=== PATIENT | male | born 1985 | race American Indian/Alaskan Native ===

== ENCOUNTER 2016-09-05 15:42 | Emergency (ER) | payer OTHER ==
[2016-09-05 16:15] VITALS: BP 122/89
--- NOTE | 2016-09-05 17:41 | Emergency Department Report ---
ED ENT HPI - General Chief complaint: Sore Throat Stated complaint: THROAT PAIN/RT PAIN Time Seen by Provider: 09/05/16 17:34 Source: patient, RN notes reviewed Mode of arrival: Ambulatory Limitations: No Limitations - History of Present Illness Initial comments: PT c/o sore throat x 1.5 weeks. PT states that he is also having R ear pain. PT states his pain is a 10/10 and he has not eaten solid food x 2 days. PT states today he looked at his throat and he saw something. PT denies taking OTC medication for his symptoms. MD complaint: sore throat -: Gradual, week(s) Location: R ear, throat Severity scale (0 -10): 10 Quality: sharp, other (throbbing ) Consistency: constant Worsens with: swallowing, eating Associated Symptoms: pain with swallowing, sore throat. denies: fever, cough, toothache, rhinorrhea - Related Data Previous Rx's Medication Instructions Recorded Last Taken Type Acetaminophen/Codeine [Tylenol #3] 1 tab PO Q6H PRN #8 tab 09/05/16 Unknown Rx Allergies Allergy/AdvReac Type Severity Reaction Status Date / Time No Known Allergies Allergy Unverified 05/15/15 12:02 ED Dental HPI - General Chief complaint: Sore Throat Stated complaint: THROAT PAIN/RT PAIN Time Seen by Provider: 09/05/16 17:34 Source: patient Mode of arrival: Ambulatory Limitations: No Limitations - Related Data Previous Rx's Medication Instructions Recorded Last Taken Type Acetaminophen/Codeine [Tylenol #3] 1 tab PO Q6H PRN #8 tab 09/05/16 Unknown Rx Allergies Allergy/AdvReac Type Severity Reaction Status Date / Time No Known Allergies Allergy Unverified 05/15/15 12:02 ED Review of Systems ROS: Stated complaint: THROAT PAIN/RT PAIN Other details as noted in HPI Comment: All other systems reviewed and negative Constitutional: denies: fever ENT: as per HPI, throat pain Respiratory: denies: cough Gastrointestinal: denies: nausea, vomiting ED Past Medical Hx - Past Medical History Previous Medical History?: Yes Hx Hypertension: No Hx Diabetes: No Additional medical history: Rhabdomylosis - Surgical History Past Surgical History?: No - Social History Smoking Status: Current Every Day Smoker Substance Use Type: Alcohol, Marijuana - Medications Home Medications: Home Medications Medication Instructions Recorded Confirmed Last Taken Type Acetaminophen/Codeine [Tylenol #3] 1 tab PO Q6H PRN #8 tab 09/05/16 Unknown Rx ED Physical Exam - General Limitations: No Limitations General appearance: alert, in no apparent distress - Head Head exam: Present: atraumatic, normocephalic - Eye Eye exam: Present: normal appearance. Absent: conjunctival injection - ENT ENT exam: Present: mucous membranes moist, TM's normal bilaterally, normal external ear exam - Expanded ENT Exam Expanded Throat exam: Positive: tonsillar erythema, tonsillomegaly, tonsillar exudate - Neck Neck exam: Present: normal inspection, full ROM, lymphadenopathy - Respiratory Respiratory exam: Present: normal lung sounds bilaterally. Absent: respiratory distress, chest wall tenderness - Cardiovascular Cardiovascular Exam: Present: regular rate, normal rhythm - Rectal Rectal exam: Present: deferred - Extremities Exam Extremities exam: Present: normal inspection, full ROM - Back Exam Back exam: Present: normal inspection, full ROM. Absent: tenderness - Neurological Exam Neurological exam: Present: alert, oriented X3 - Psychiatric Psychiatric exam: Present: normal affect, normal mood - Skin Skin exam: Present: warm, dry ED Course Vital Signs 09/05/16 16:12 Temperature 98.2 F Pulse Rate 61 Respiratory 16 Rate Blood Pressure 122/89 O2 Sat by Pulse 100 Oximetry - Reevaluation(s) Reevaluation #1: 09/05/16 17:41 PT aware of dx and plan of care. - Pulse Oximetry Interpretation Digit-Finger Initial Pulse Oximetry Readin Actions Taken: none ED Medical Decision Making - Differential Diagnosis om, strep pharyngitis Critical care attestation.: If time is entered above; I have spent that time in minutes in the direct care of this critically ill patient, excluding procedure time. ED Disposition Clinical Impression: Exudative pharyngitis, Otalgia, right ear Disposition: DISCHARGED TO HOME OR SELFCARE Is pt being admited?: No Does the pt Need Aspirin: No Condition: Stable Instructions: Strep Throat (ED), Tonsillitis (ED) Referrals: PRIMARY CARE,MD [Primary Care Provider] - 3-5 Days Forms: Work/School Release Form(ED) Time of Disposition: 17:44 (pending meds )
[2016-09-05] MEDS: MOTRIN PO ONE (17:54)
[2016-09-05] MEDS: BICILLIN L-A IM ONE (17:54)
== END 2016-09-05 18:23 | disposition home or self-care (01) ==
LOC: ED 15:42
DX: J02.9 Acute pharyngitis, unspecified (principal); H92.01 Otalgia, right ear; F12.10 Cannabis abuse, uncomplicated; F17.200 Nicotine dependence, unspecified, uncomplicated
CPT/HCPCS: 96372; 99282; J0561

== ENCOUNTER 2017-03-12 05:43 | Emergency (ER) | payer SELFPAY ==
[2017-03-12] MEDS ORDERED: DUONEB *Not for PRN Use IH ONE (08:11)
[2017-03-12] MEDS ORDERED: TESSALON PERLES PO ONE (08:12)
[2017-03-12] MEDS ORDERED: MOTRIN PO ONE (08:12)
--- NOTE | 2017-03-12 08:29 | XRay Report ---
ROUTINE CHEST, TWO VIEWS: HISTORY: Cough, shortness of breath. The trachea, heart, mediastinal contour, lung doll and bony thorax are unremarkable. IMPRESSION: Unremarkable chest x-ray. No change since 05/15/15.
--- NOTE | 2017-03-12 08:32 | Emergency Department Report ---
ED General Adult HPI - General Chief complaint: Upper Respiratory Infection Stated complaint: COUGH Time Seen by Provider: 03/12/17 08:07 Source: patient Mode of arrival: Ambulatory Limitations: No Limitations - History of Present Illness Initial comments: PT c/o cough x 2-3 days. Gradually worsening. PT states he has a hx of bronchitis. PT states he was having productive cough but now he is having dry cough. PT does smoke, last was 1 week ago. [place] and he [place] not know what he was exposed to. PT states he can not work coughing like this. PT also c/o sinus congestion. Complaint: uri -: Gradual, days(s) Location: head, chest Severity scale (0 -10): 8 Quality: aching Consistency: constant Improves with: none (no relief with cough drops ) Worsens with: other (gradually ) Associated Symptoms: cough, fever/chills, headaches, malaise, weakness ( generalized ). denies: rash Treatments Prior to Arrival: none - Related Data Previous Rx's Medication Instructions Recorded Last Taken Type Albuterol Sulfate [Ventolin HFA] 2 puff IH Q4H PRN #1 hfa.aer.ad 03/12/17 Unknown Rx Benzonatate [Tessalon Perles] 100 mg PO Q8HR PRN #12 capsule 03/12/17 Unknown Rx Ibuprofen [Motrin] 600 mg PO Q8H PRN #15 tablet 03/12/17 Unknown Rx guaiFENesin DM [Robitussin Dm] 10 ml PO Q6HR PRN #1 bottle 03/12/17 Unknown Rx Allergies Allergy/AdvReac Type Severity Reaction Status Date / Time No Known Allergies Allergy Unverified 05/15/15 12:02 ED Review of Systems ROS: Stated complaint: COUGH Other details as noted in HPI Comment: All other systems reviewed and negative Constitutional: chills, malaise, weakness. denies: fever ENT: throat pain (hurts throat to cough ), congestion. denies: ear pain Respiratory: cough. denies: stridor Cardiovascular: denies: chest pain Gastrointestinal: denies: abdominal pain, nausea, vomiting Neurological: headache ED Past Medical Hx - Past Medical History Previous Medical History?: Yes Hx Hypertension: No Hx Diabetes: No Additional medical history: Rhabdomylosis - Surgical History Past Surgical History?: No - Social History Smoking Status: Current Every Day Smoker Substance Use Type: Alcohol, Marijuana - Medications Home Medications: Home Medications Medication Instructions Recorded Confirmed Last Taken Type Albuterol Sulfate [Ventolin HFA] 2 puff IH Q4H PRN #1 hfa.aer.ad 03/12/17 Unknown Rx Benzonatate [Tessalon Perles] 100 mg PO Q8HR PRN #12 capsule 03/12/17 Unknown Rx Ibuprofen [Motrin] 600 mg PO Q8H PRN #15 tablet 03/12/17 Unknown Rx guaiFENesin DM [Robitussin Dm] 10 ml PO Q6HR PRN #1 bottle 03/12/17 Unknown Rx ED Physical Exam - General Limitations: No Limitations General appearance: alert, in no apparent distress - Head Head exam: Present: atraumatic, normocephalic, normal inspection, other ( maxially sinus tenderness ) - Eye Eye exam: Present: normal appearance, PERRL, EOMI. Absent: conjunctival injection, nystagmus Pupils: Present: normal accommodation - ENT ENT exam: Present: normal exam, mucous membranes moist, TM's normal bilaterally , normal external ear exam - Neck Neck exam: Present: normal inspection, full ROM. Absent: tenderness, meningismus, lymphadenopathy, thyromegaly - Respiratory Respiratory exam: Present: normal lung sounds bilaterally, respiratory distress , other (constant cough during exam ). Absent: wheezes, rales, rhonchi, stridor - Cardiovascular Cardiovascular Exam: Present: regular rate, normal rhythm, normal heart sounds - GI/Abdominal GI/Abdominal exam: Present: soft. Absent: tenderness - Extremities Exam Extremities exam: Present: normal inspection, full ROM - Back Exam Back exam: Present: normal inspection, full ROM. Absent: tenderness, CVA tenderness (R), CVA tenderness (L), muscle spasm, paraspinal tenderness, vertebral tenderness - Neurological Exam Neurological exam: Present: alert, oriented X3, CN II-XII intact, normal gait - Expanded Neurological Exam Expanded Patient oriented to: Present: person, place, time Speech: Present: fluid speech Best Eye Response ([place]): (4) open spontaneously Best Motor Response ([place]): (6) obeys commands Best Verbal Response ([place]): (5) oriented [place] Total: 15 ED Course Vital Signs 03/12/17 05:47 Temperature 98 F Pulse Rate 72 Respiratory 18 Rate Blood Pressure 130/98 O2 Sat by Pulse 100 Oximetry - Reevaluation(s) Reevaluation #1: 03/12/17 09:07 PT aware of XR results. PT states neb helped decrease cough. PT aware of dx and plan of care. - Pulse Oximetry Interpretation Digit-Finger Initial Pulse Oximetry Readin Actions Taken: none ED Medical Decision Making - Radiology Data Radiology results: report reviewed - Differential Diagnosis viral uri, bronchitis, pna Critical Care Time: No Critical care attestation.: If time is entered above; I have spent that time in minutes in the direct care of this critically ill patient, excluding procedure time. ED Disposition Clinical Impression: Viral URI with cough Disposition: TO HOME OR SELFCARE Is pt being admited?: No Does the pt Need Aspirin: No Condition: Stable Instructions: Upper Respiratory Infection (ED), Acute Cough (ED) Additional Instructions: Recheck BP at follow up Follow up with PCP in 3-5 days rest, increase fluids Return to the ED if worsening or concerns Prescriptions: Albuterol Sulfate [Ventolin HFA] 2 puff IH Q4H PRN #1 hfa.aer.ad PRN Reason: Shortness Of Breath Benzonatate [Tessalon Perles] 100 mg PO Q8HR PRN #12 capsule PRN Reason: Cough guaiFENesin DM [Robitussin Dm] 10 ml PO Q6HR PRN #1 bottle PRN Reason: Cough Ibuprofen [Motrin] 600 mg PO Q8H PRN #15 tablet PRN Reason: Pain Referrals: PRIMARY MD PATRICK [Primary Care Provider] - 3-5 Days MEREDITH STAPLES MD [Staff Physician] - 3-5 Days Forms: Work/School Release Form(ED) Time of Disposition: 09:10
[2017-03-12 09:38] VITALS: BP 123/84
== END 2017-03-12 09:38 | disposition home or self-care (01) ==
LOC: ED 05:43
DX: J06.9 Acute upper respiratory infection, unspecified (principal); F17.210 Nicotine dependence, cigarettes, uncomplicated; F12.10 Cannabis abuse, uncomplicated
CPT/HCPCS: 71020; 94640; 99283

== ENCOUNTER 2017-07-10 13:39 | Emergency (ER) | payer SELFPAY ==
--- NOTE | 2017-07-10 15:39 | XRay Report ---
LEFT SHOULDER: Trauma, pain. Routine views demonstrate normal bony and soft tissue structures with normal joint alignment of the shoulder. IMPRESSION: Normal study.
[2017-07-10] MEDS ORDERED: TYLENOL ONE (20:22)
[2017-07-10 20:24] VITALS: BP 135/100
[2017-07-10] MEDS ORDERED: TYLENOL PO ONE (20:25)
[2017-07-10] MEDS ORDERED: NORCO 5/325 PO ONE (22:27)
[2017-07-10] MEDS ORDERED: ZOFRAN ODT PO ONE (22:27)
[2017-07-10] MEDS ORDERED: MOTRIN PO ONE (22:28)
--- NOTE | 2017-07-10 22:34 | Emergency Department Report ---
ED Extremity Problem HPI - General Chief complaint: Shoulder Injury Stated complaint: LEFT ARM PAIN Time Seen by Provider: 07/10/17 22:21 Source: patient Mode of arrival: Ambulatory Limitations: No Limitations - History of Present Illness Initial comments: PT states he went ice skating on Sunday, he fell and landed on the top of his left shoulder. PT reports 10/10 shoulder pain. PT states he does not think it is broken. PT states he needs a work note because [place] and he can not lift anything. PT state he was given one tab of Tylenol in triage and it did not help the pain. PT denies other injuries from fall. PT denies loc. MD Complaint: joint paint -: Sudden, days(s) Location: left, upper extremity, other (shoulder ) History of Same: No Radiation: none Severity scale (0 -10): 10 Quality: sharp, constant Improves with: nothing Worsens with: palpation, other (sitting in the chairs in the ED waiting room ) Associated Symptoms: denies other symptoms. denies: chest pain, shortness of breath - Related Data Previous Rx's Medication Instructions Recorded Last Taken Type Albuterol Sulfate [Ventolin HFA] 2 puff IH Q4H PRN #1 hfa.aer.ad 03/12/17 Unknown Rx Acetaminophen/Codeine [Tylenol #3] 1 tab PO Q6H PRN #12 tab 07/10/17 Unknown Rx Ibuprofen [Motrin] 600 mg PO Q8H PRN #15 tablet 07/10/17 Unknown Rx methOCARBAMOL [Robaxin TAB] 500 mg PO Q6H PRN #15 tablet 07/10/17 Unknown Rx Allergies Allergy/AdvReac Type Severity Reaction Status Date / Time No Known Allergies Allergy Verified 07/10/17 14:06 ED Review of Systems ROS: Stated complaint: LEFT ARM PAIN Other details as noted in HPI Comment: All other systems reviewed and negative Constitutional: denies: fever Cardiovascular: denies: chest pain, syncope Gastrointestinal: other (pt reports that he is hungry ). denies: abdominal pain Musculoskeletal: back pain, arthralgia. denies: joint swelling Neurological: denies: headache, numbness, paresthesias ED Past Medical Hx - Past Medical History Previous Medical History?: No Hx Hypertension: No Hx Diabetes: No Additional medical history: Rhabdomylosis - Surgical History Past Surgical History?: No - Social History Smoking Status: Current Every Day Smoker Substance Use Type: Alcohol - Medications Home Medications: Home Medications Medication Instructions Recorded Confirmed Last Taken Type Albuterol Sulfate [Ventolin HFA] 2 puff IH Q4H PRN #1 hfa.aer.ad 03/12/17 Unknown Rx Acetaminophen/Codeine [Tylenol #3] 1 tab PO Q6H PRN #12 tab 07/10/17 Unknown Rx Ibuprofen [Motrin] 600 mg PO Q8H PRN #15 tablet 07/10/17 Unknown Rx methOCARBAMOL [Robaxin TAB] 500 mg PO Q6H PRN #15 tablet 07/10/17 Unknown Rx ED Physical Exam - General Limitations: No Limitations General appearance: alert, in no apparent distress - Head Head exam: Present: atraumatic, normocephalic, normal inspection - Eye Eye exam: Present: normal appearance. Absent: conjunctival injection, nystagmus - ENT ENT exam: Present: normal exam, mucous membranes moist, normal external ear exam - Neck Neck exam: Present: normal inspection, full ROM, other (no post mid line C- spine tenderness ). Absent: tenderness, lymphadenopathy - Respiratory Respiratory exam: Present: normal lung sounds bilaterally. Absent: respiratory distress, chest wall tenderness, accessory muscle use - Cardiovascular Cardiovascular Exam: Present: regular rate, normal rhythm, normal heart sounds - GI/Abdominal GI/Abdominal exam: Present: soft. Absent: tenderness - Extremities Exam Extremities exam: Present: normal inspection, full ROM, tenderness, normal capillary refill - Expanded Upper Extremity Exam Right General: Present: normal inspection Shoulder Exam: Present: normal inspection, full ROM Left Shoulder Exam: Present: normal inspection, full ROM, tenderness (L scapula ttp, L trapizous ttp ). Absent: swelling, abrasion, ecchymosis, deformity, crepidus , dislocation, erythema, tenderness over AC joint Elbow exam: Present: normal inspection, full ROM Forearm Wrist exam: Present: normal inspection, full ROM - Back Exam Back exam: Present: normal inspection, tenderness, paraspinal tenderness (L t spine ), vertebral tenderness (T spine ). Absent: CVA tenderness (R), CVA tenderness (L) - Neurological Exam Neurological exam: Present: alert, oriented X3, normal gait - Psychiatric Psychiatric exam: Present: normal affect, normal mood - Skin Skin exam: Present: warm, dry, intact, normal color ED Course Vital Signs 07/10/17 07/10/17 14:06 20:23 Temperature 98.1 F 97.8 F Pulse Rate 65 65 Respiratory 16 18 Rate Blood Pressure 121/85 135/100 O2 Sat by Pulse 99 Oximetry - Reevaluation(s) Reevaluation #1: 07/10/17 22:39 PT aware of L shoulder XR results. PT declined T spine XR. PT aware of plan of care. No questions at this time. 07/10/17 22:51 PT placed in sling by nursing staff. PT NVI - Pulse Oximetry Interpretation Digit-Finger Initial Pulse Oximetry Readin Actions Taken: none ED Medical Decision Making - Radiology Data Radiology results: report reviewed L shoulder XR- NAP - Differential Diagnosis fracture, strain, contusion Critical Care Time: No Critical care attestation.: If time is entered above; I have spent that time in minutes in the direct care of this critically ill patient, excluding procedure time. ED Disposition Clinical Impression: Fall from ice-skates, initial encounter Left shoulder pain Qualifiers: Chronicity: acute Qualified Code(s): M25.512 - Pain in left shoulder Acute back pain Qualifiers: Back pain location: thoracic back pain Back pain laterality: unspecified Qualified Code(s): M54.6 - Pain in thoracic spine Disposition: -01 TO HOME OR SELFCARE Is pt being admited?: No Does the pt Need Aspirin: No Condition: Stable Instructions: Shoulder Sprain (ED), Arthralgia (ED), Muscle Spasm (ED), Back Pain (ED) Additional Instructions: RICE Follow up with PCP or ORTHO in the next 2-3 days Recheck bp at follow up You may need further imaging if your pain persists. No driving or alcohol after taking Robaxin or Tylenol #3 Wear sling when up and active for the next 5 days Prescriptions: Acetaminophen/Codeine [Tylenol #3] 1 tab PO Q6H PRN #12 tab PRN Reason: Pain , Severe (7-10) Ibuprofen [Motrin] 600 mg PO Q8H PRN #15 tablet PRN Reason: Pain methOCARBAMOL [Robaxin TAB] 500 mg PO Q6H PRN #15 tablet PRN Reason: Muscle Spasm Referrals: ETHAN MICHELLE MD [Primary Care Provider] - 3-5 Days ALEA RIVERA MD [Staff Physician] - 3-5 Days Forms: Work/School Release Form(ED) Time of Disposition: 22:44
== END 2017-07-10 23:00 | disposition home or self-care (01) ==
LOC: ED 13:39
DX: M25.512 Pain in left shoulder (principal); M54.6 Pain in thoracic spine; F17.200 Nicotine dependence, unspecified, uncomplicated; V00.211A Fall from ice-skates, initial encounter; Y93.21 Activity, ice skating; Y99.8 Other external cause status; Y92.89 Other specified places as the place of occurrence of the external cause
CPT/HCPCS: 99284; Q0162

== ENCOUNTER 2018-03-04 13:28 | Emergency (ER) | payer SELFPAY ==
[2018-03-04 14:18] VITALS: BP 122/83
[2018-03-04] MEDS ORDERED: ULTRAM PO ONE (17:10)
[2018-03-04] MEDS ORDERED: MOTRIN PO ONE ×2 (17:10→17:44)
[2018-03-04] MEDS ORDERED: ROBAXIN PO ONE (17:11)
--- NOTE | 2018-03-04 17:20 | Emergency Department Report ---
ED Fall HPI - General Chief Complaint: Extremity Injury, Lower Stated Complaint: LEFT LEG PAIN Time Seen by Provider: 03/04/18 16:52 Source: patient Mode of arrival: Ambulatory - History of Present Illness Initial Comments: 32-year-old male status post fall down stairs this morning while at home. Patient denies LOC. Reports pain to left hip. Pt ambilatory, but unable to put full pressure on left leg. Denies weakness, numbness or tingling. -: Sudden, This morning Fall From: down stairs (#) (12) When Fall Occurred: other (this morning) Fall Witnessed: no Place Fall Occurred: home Loss of Consciousness: none Prolonged Down Time?: no Location: other (left hip/ leg) Location - Extremities: Left: Leg Severity: moderate Quality: other (throbbing) Context: tripped/slipped Associated Symptoms: denies: headache, neck pain - Related Data Previous Rx's Medication Instructions Recorded Last Taken Type Albuterol Sulfate [Ventolin HFA] 2 puff IH Q4H PRN #1 hfa.aer.ad 03/12/17 Unknown Rx Acetaminophen/Codeine [Tylenol #3] 1 tab PO Q6H PRN #12 tab 07/10/17 Unknown Rx Ibuprofen [Motrin] 600 mg PO Q8H PRN #15 tablet 07/10/17 Unknown Rx methOCARBAMOL [Robaxin TAB] 500 mg PO Q6H PRN #15 tablet 07/10/17 Unknown Rx Methocarbamol [Robaxin-750] 750 mg PO Q6HR PRN #20 tablet 03/04/18 Unknown Rx Naproxen [Naprosyn] 500 mg PO BID PRN #20 tablet 03/04/18 Unknown Rx traMADol [Ultram] 50 mg PO Q6HR PRN #7 tablet 03/04/18 Unknown Rx Allergies Allergy/AdvReac Type Severity Reaction Status Date / Time No Known Allergies Allergy Verified 07/10/17 14:06 ED Review of Systems ROS: Stated complaint: LEFT LEG PAIN Other details as noted in HPI Comment: All other systems reviewed and negative Musculoskeletal: arthralgia Neurological: denies: weakness, numbness, paresthesias ED Past Medical Hx - Past Medical History Hx Hypertension: No Hx Diabetes: No Additional medical history: Rhabdomylosis - Social History Smoking Status: Unknown if ever smoked Substance Use Type: None - Medications Home Medications: Home Medications Medication Instructions Recorded Confirmed Last Taken Type Albuterol Sulfate [Ventolin HFA] 2 puff IH Q4H PRN #1 hfa.aer.ad 03/12/17 Unknown Rx Acetaminophen/Codeine [Tylenol #3] 1 tab PO Q6H PRN #12 tab 07/10/17 Unknown Rx Ibuprofen [Motrin] 600 mg PO Q8H PRN #15 tablet 07/10/17 Unknown Rx methOCARBAMOL [Robaxin TAB] 500 mg PO Q6H PRN #15 tablet 07/10/17 Unknown Rx Methocarbamol [Robaxin-750] 750 mg PO Q6HR PRN #20 tablet 03/04/18 Unknown Rx Naproxen [Naprosyn] 500 mg PO BID PRN #20 tablet 03/04/18 Unknown Rx traMADol [Ultram] 50 mg PO Q6HR PRN #7 tablet 03/04/18 Unknown Rx ED Physical Exam - General Limitations: No Limitations General appearance: alert, in no apparent distress - Head Head exam: Present: atraumatic, normocephalic - Eye Eye exam: Present: normal appearance - Neck Neck exam: Present: normal inspection. Absent: tenderness - Respiratory Respiratory exam: Present: normal lung sounds bilaterally. Absent: respiratory distress - Cardiovascular Cardiovascular Exam: Present: regular rate, normal rhythm - GI/Abdominal GI/Abdominal exam: Present: soft. Absent: tenderness - Extremities Exam Extremities exam: Present: tenderness (tenderness present in left lateral thigh) ED Course Vital Signs 03/04/18 14:14 Temperature 98.6 F Pulse Rate 70 Respiratory 18 Rate Blood Pressure 122/83 O2 Sat by Pulse 97 Oximetry ED Medical Decision Making - Radiology Data Radiology results: report reviewed interpreted by me: Negative for fracture or dislocation - Medical Decision Making 32-year-old male status post fall downstairs with left hip pain. X-ray reviewed by me no signs of fractures dislocations. Patient lightly if there is some pain due to contusion. Will give crutches for use, pain meds, instructions on icing the injury. - Differential Diagnosis contusion, fracture, sprain Critical care attestation.: If time is entered above; I have spent that time in minutes in the direct care of this critically ill patient, excluding procedure time. ED Disposition Clinical Impression: Contusion, thigh and hip Disposition: TO HOME OR SELFCARE Is pt being admited?: No Condition: Stable Instructions: Contusion in Adults (ED) Prescriptions: Methocarbamol [Robaxin-750] 750 mg PO Q6HR PRN #20 tablet PRN Reason: Pain, Moderate (4-6) Naproxen [Naprosyn] 500 mg PO BID PRN #20 tablet PRN Reason: Pain, Moderate (4-6) traMADol [Ultram] 50 mg PO Q6HR PRN #7 tablet PRN Reason: Pain Referrals: ALEA RIVERA MD [Staff Physician] - as needed [facility] [Provider Group] - as needed Time of Disposition: 18:38
--- NOTE | 2018-03-04 19:21 | XRay Report ---
FINAL REPORT PROCEDURE: XR HIP 2-3V LT TECHNIQUE: AP view of the pelvis and lateral view of the left hip HISTORY: fall and pain COMPARISON: No prior studies are available for comparison. FINDINGS: No acute fracture or dislocation is seen. No focal osseous lesions. IMPRESSION: No acute fracture is seen
== END 2018-03-04 18:46 | disposition home or self-care (01) ==
LOC: ED 13:28
DX: S70.12XA Contusion of left thigh, initial encounter (principal); S70.02XA Contusion of left hip, initial encounter; W01.0XXA Fall on same level from slipping, tripping and stumbling without subsequent striking against object, initial encounter; Y93.89 Activity, other specified; Y92.009 Unspecified place in unspecified non-institutional (private) residence as the place of occurrence of the external cause; Y99.8 Other external cause status
CPT/HCPCS: 99283